=== PATIENT | female | born 1980 | race Caucasian/White ===

== ENCOUNTER 2018-01-28 13:59 | Emergency (ER) | payer OTHER ==
[~2018-01-28] VITALS: Ht 162.6 cm; Wt 83.3 kg
[~2018-01-28 13:59] MED LIST: CRESTOR40 MG PO; ENDOCET 5-3251 EACH PO; IBUPROFEN800 MG PO; LYRICA200 MG PO; NABUMETONE750 MG PO; NEXIUM40 MG PO; NORTRIPTYLINE H25 MG PO; PREDNISOLONE5 MG PO; PROAIR HFA8.5 GM IH; TRAMADOL-APAP1 EACH PO; TRIAMTERENE-HC1 EACH PO; VITAMIN D2000 UNI1 PO
[2018-01-28 14:50] LABS: HEMATOCRIT 46.6 % (36.0-46.0); HEMOGLOBIN 15.4 G/DL (11.9-15.5); MCH 27.5 PG (29.0-34.0); MCV 83.1 FL (83-99); RBC DIS.WIDTH-CV 16.2 % (11.8-14.6); RBC DIS.WIDTH-SD 48.1 % (39-53); RED BLOOD COUNT 5.61 M/uL (3.80-5.20); WHITE BLOOD COUNT 7.7 K/uL (4.1-10.2)
[2018-01-28 15:05] LABS: ALBUMIN 4.6 g/dL (3.2-4.8)
[2018-01-28 15:06] LABS: CHLORIDE 101 mEq/L (99-109); POTASSIUM 3.7 mEq/L (3.7-5.4); SODIUM 141 mEq/L (136-147)
[2018-01-28 15:08] LABS: GLUCOSE 97 mg/dL (70-99); TOTAL PROTEIN 8.1 g/dL (6.4-8.3)
[2018-01-28 15:10] LABS: TOTAL BILIRUBIN 1.1 mg/dL (0.0-1.0)
[2018-01-28 15:11] LABS: ALKALINE PHOSPHATASE 72 IU/L (3-129)
[2018-01-28 15:12] LABS: CREATININE 0.8 mg/dL (0.6-1.3); GFR ESTIMATE (CALCULATED) > 59 mL/min/
[2018-01-28 15:13] LABS: AST (GOT) 42 IU/L (2-34); UREA NITROGEN (BUN) 11 mg/dL (9-23)
[2018-01-28 15:14] LABS: ALT (GPT) 53 IU/L (3-49)
[2018-01-28 15:20] LABS: QUANTITATIVE HCG < 4.0 MIU/ML
[2018-01-28 15:41] LABS: PLATELET COUNT 291 K/uL (156-360)
[2018-01-28 17:35] LABS: LIPASE 14 U/L (1.0-51.0)
[2018-01-28 18:26] LABS: ALBUMIN 4.3 g/dL (3.2-4.8); CHLORIDE 102 mEq/L (99-109); POTASSIUM 3.6 mEq/L (3.7-5.4); SODIUM 142 mEq/L (136-147)
[2018-01-28 18:29] LABS: GLUCOSE 142 mg/dL (70-99); TOTAL PROTEIN 7.5 g/dL (6.4-8.3)
[2018-01-28 18:32] LABS: ALKALINE PHOSPHATASE 67 IU/L (3-129); CREATININE 0.8 mg/dL (0.6-1.3); GFR ESTIMATE (CALCULATED) > 59 mL/min/
[2018-01-28 18:33] LABS: UREA NITROGEN (BUN) 10 mg/dL (9-23)
[2018-01-28 18:34] LABS: AST (GOT) 40 IU/L (2-34)
[2018-01-28 18:35] LABS: ALT (GPT) 53 IU/L (3-49)
[2018-01-28 18:59] LABS: APPEARANCE CLEAR ((CLEAR)); BILIRUBIN NEGATIVE; BLOOD NEGATIVE; COLOR YELLOW ((YELLOW)); GLUCOSE (STRIP) NEGATIVE; KETONES NEGATIVE; LEUKOCYTES NEGATIVE; NITRITE NEGATIVE; PROTEIN (STRIP) NEGATIVE; SPECIFIC GRAVITY 1.009 (1.000-1.030); UCUL ADDED? NO; UROBILINOGEN 0.2 MG/DL (0.2-1.0)
[2018-01-28] MEDS ORDERED: CITRATE OF MAG296 ML PO (19:21)
[2018-01-28 19:26] VITALS: BP 122/64
== END 2018-01-28 19:26 | disposition home or self-care (01) ==
LOC: EME 13:59
PROVIDERS: Internal Medicine Hematology & Oncology; Physician Assistant
DX: R10.31 Right lower quadrant pain (principal); K59.00 Constipation, unspecified; Z90.49 Acquired absence of other specified parts of digestive tract; F32.9 Major depressive disorder, single episode, unspecified; M79.7 Fibromyalgia; Z87.891 Personal history of nicotine dependence
CPT/HCPCS: 74176; 80053; 81003; 83690; 84702; 85027; 99281; 99284